=== PATIENT | male | born 1940 | race Caucasian/White ===

== ENCOUNTER 2017-02-05 21:28 | Emergency (ER) | payer MEDICARE, BC ==
[2017-02-05 21:58] VITALS: TEMP 98.2; O2SAT 98
--- NOTE | 2017-02-05 22:31 | RAD ---
Procedure: XR ANKLE 3 OR MORE VIEWS Exam Date: 02/05/2017 Ordering Provider: Ronald Simon Clinical Indication: struck inner ankle with axe-head Comparison: None FINDINGS: No acute fracture or dislocation. Medial soft tissue swelling. Small joint effusion. Vascular calcifications. Achilles enthesophyte. No subcutaneous gas evident. No radiopaque foreign body. IMPRESSION: 1. No acute fracture or dislocation of the right ankle. 2. Medial soft tissue swelling and small joint effusion. Electronically signed by: Adama Vail MD 02/05/2017 10:30 PM CDT
--- NOTE | 2017-02-05 22:34 | ED.PDOC ---
History of Present Illness - General Chief Complaint: Lower Extremity Injury Stated Complaint: rt ankle injury Time Seen by Provider: 02/05/17 22:32 Source: patient Exam Limitations: no limitations - History of Present Illness Initial Comments: Mr. Tejal Ybarra 76 y/o male with history of a.fib ,DM, and HTN stated while he was cutting tree limbs with his grubbing hoe it bounced back hitting his right ankle with swelling pain after incident on his right ankle. Occurred: this evening Pain - Lower Extremity: moderate: Right Ankle Method of Injury: direct blow Improving Factors: rest Worsening Factors: movement Allergies/Adverse Reactions: Allergies NO KNOWN ALLERGY Allergy (Verified 02/05/17 21:58) Home Medications: Ambulatory Orders Amoxicillin [Amoxil] 1,000 mg PO BID #30 cap 02/05/17 Centrum Silver 02/05/17 Ergocalciferol [Drisdol] 50,000 unit PO 02/05/17 Gabapentin [Neurontin] 300 mg PO 02/05/17 Levothyroxine Sodium [Synthroid] 150 mcg PO 02/05/17 Metformin HCl 500 mg PO 02/05/17 Pantoprazole Sodium [Protonix] 40 mg PO 02/05/17 Rivaroxaban [Xarelto] 20 mg PO 02/05/17 Simvastatin [Zocor] 20 mg 02/05/17 Tamsulosin HCl [Flomax] 0.4 mg PO 02/05/17 Tolterodine Tartrate [Tolterodine Tartrate ER] 4 mg PO 02/05/17 Review of Systems - Review of Systems Constitutional: States: no symptoms reported EENTM: States: no symptoms reported Respiratory: States: no symptoms reported Cardiology: States: no symptoms reported Gastrointestinal/Abdominal: States: no symptoms reported Genitourinary: States: no symptoms reported Musculoskeletal: States: see HPI Skin: States: no symptoms reported Neurological: States: other - neuropathy both feet from diabetes Endocrine: States: no symptoms reported Past Medical History (General) - Patient Medical History Hx Cardiac Disorders: Yes - a-fib Hx Thyroid Disease: Yes Hx Diabetes: Yes Hx Gastroesophageal Reflux: Yes Hx MRSA: No Surgical History: other - neck,esophagus,cardiac ablation - Vaccination History Hx Tetanus, Diphtheria Vaccination: No Hx Influenza Vaccination: Yes - Social History Hx Tobacco Use: No Hx Alcohol Use: No Hx Substance Use: No - Activities of Daily Living Patient Lives Alone: No - Grooming Ability: Independent Eating (Feeding) Ability: Independent Toileting Ability: Independent - Triage Comment ED Triage Comment: abrasion and swelling to inner rt ankle where struck self with axe head Family Medical History - Family History Father Family History: Unknown Hx Family Stroke: Yes - mom - Hx Family Cancer: Yes - prostate-dad Physical Exam - Physical Exam General Appearance: Alert, No apparent distress Eyes, Ears, Nose, Throat: PERRL/EOMI, normal ENT inspection, TMs normal, pharynx normal Neck: non-tender, full range of motion, supple Cardiovascular/Respiratory: no M/R/G, normal breath sounds, irregularly irregular Gastrointestinal/Abdominal: non-tender, no organomegaly Back: normal inspection, no CVA tenderness, no vertebral tenderness Thigh/Hip: normal inspection, no evidence of injury Leg: normal inspection, no evidence of injury Knee: normal inspection, no evidence of injury Ankle: soft tissue tenderness, swelling - medial malleolus right ankle Foot: normal inspection, non-tender, no evidence of injury Neuro/Tendon: normal motor functions, normal tendon functions, responds to pain Mental Status: alert, oriented x 3 Skin: normal color, warm/dry Progress - EKG/XRAY/CT XRAY: ankle - right no fracture noted Departure - Departure Clinical Impression: Swelling of joint, ankle, right Contusion of ankle, right Qualifiers: Encounter type: initial encounter Qualifier Code: (S90.01XA) Contusion of right ankle, initial encounter Time of Disposition: 22:55 Disposition: Discharge to Home or Self Care Condition: Good Departure Forms: ED Discharge - Pt. Copy, Patient Portal Self Enrollment Instructions: DI for Contusion Prescriptions: Amoxicillin [Amoxil] 1,000 mg PO BID #30 cap Home Medications: Ambulatory Orders Amoxicillin [Amoxil] 1,000 mg PO BID #30 cap 02/05/17 Centrum Silver 02/05/17 Ergocalciferol [Drisdol] 50,000 unit PO 02/05/17 Gabapentin [Neurontin] 300 mg PO 02/05/17 Levothyroxine Sodium [Synthroid] 150 mcg PO 02/05/17 Metformin HCl 500 mg PO 02/05/17 Pantoprazole Sodium [Protonix] 40 mg PO 02/05/17 Rivaroxaban [Xarelto] 20 mg PO 02/05/17 Simvastatin [Zocor] 20 mg 02/05/17 Tamsulosin HCl [Flomax] 0.4 mg PO 02/05/17 Tolterodine Tartrate [Tolterodine Tartrate ER] 4 mg PO 02/05/17 Additional Instructions: FOLLOW UP WITH PRIMARY MD IN ONE WEEK IF NEEDED;ELEVATE RIGHT LEG 20 degrees at bedtime until better Ice pack to affected area during waking hours only 3 x a day until better
[2017-02-05] MEDS ORDERED: TETANUS,DIPHTHERIA,PERTUSSIS 1 EA SYG IM ONE (22:52)
[2017-02-05 22:59] VITALS: BP 96/64
== END 2017-02-05 23:03 | disposition home or self-care (01) ==
LOC: ER 21:28
DX: S90.01XA Contusion of right ankle, initial encounter (principal); I48.91 Unspecified atrial fibrillation; E07.9 Disorder of thyroid, unspecified; E11.9 Type 2 diabetes mellitus without complications; K21.9 Gastro-esophageal reflux disease without esophagitis; Z23 Encounter for immunization; Z79.899 Other long term (current) drug therapy; W22.8XXA Striking against or struck by other objects, initial encounter; Y93.H2 Activity, gardening and landscaping

== ENCOUNTER 2017-04-29 10:47 | Inpatient (IN) | payer MEDICARE ==
[2017-04-29] MEDS ORDERED: PIPERACILLIN/TAZOBACTAM 3.375 GM in SODIUM CHLORIDE 0.9% 100ML 100 ML IVPB ONE (12:18)
[2017-04-29] MEDS ORDERED: IPRATROPIUM/ALBUTEROL 3 ML VIAL NEB ONE (12:20)
[2017-04-29] MEDS ORDERED: SODIUM CHLORIDE 0.9% 100ML 100 ML IVPB ONE (12:21)
[2017-04-29] MEDS ORDERED: PIPERACILLIN/TAZOBACTAM 3.375 GM VIAL IVPB ONE (12:21)
--- NOTE | 2017-04-29 12:21 | ED.PDOC ---
History of Present Illness - General Chief Complaint: GI Problem Stated Complaint: diarrhea,vomiting,cough Time Seen by Provider: 04/29/17 11:15 Source: patient Exam Limitations: no limitations - History of Present Illness Initial Comments: the patient is a 77-year-old male presenting to the emergency room with the suspicion that he has a pneumonia. He has had aspiration pneumonias in the past secondary to his esophageal difficulties as well as vocal cord dysfunction. He has had multiple recurrent infections from his esophageal surgery in the past. The patient is feeling short of breath, weak, febrile and he did throw up a couple of times this morning. He is febrile here. His oxygen saturations have been ranging from 88-92% on room air. He does not normally require oxygen is not an asthmatic. He has not passed out but he has felt dizzy. Symptoms startedlate last night. He does have a cough. Timing/Duration: 4-6 hours, getting worse Severity: moderate Improving Factors: nothing Worsening Factors: nothing Associated Symptoms: chest pain, loss of appetite, malaise, nausea/vomiting, shortness of breath, weakness Allergies/Adverse Reactions: Allergies NO KNOWN ALLERGY Allergy (Verified 02/05/17 21:58) Home Medications: Ambulatory Orders Amoxicillin [Amoxil] 1,000 mg PO BID #30 cap 02/05/17 Centrum Silver 02/05/17 Ergocalciferol [Drisdol] 50,000 unit PO 02/05/17 Gabapentin [Neurontin] 300 mg PO 02/05/17 Levothyroxine Sodium [Synthroid] 150 mcg PO 02/05/17 Metformin HCl 500 mg PO 02/05/17 Pantoprazole Tablet [Protonix] 40 mg PO 02/05/17 Rivaroxaban [Xarelto] 20 mg PO 02/05/17 Simvastatin [Zocor] 20 mg 02/05/17 Tamsulosin HCl [Flomax] 0.4 mg PO 02/05/17 Tolterodine Tartrate [Tolterodine Tartrate ER] 4 mg PO 02/05/17 Review of Systems - Review of Systems Constitutional: States: diaphoresis, fever, malaise, weakness EENTM: States: no symptoms reported Respiratory: States: cough, short of breath, wheezing Cardiology: States: no symptoms reported Gastrointestinal/Abdominal: States: nausea, vomiting Genitourinary: States: no symptoms reported Musculoskeletal: States: no symptoms reported Skin: States: no symptoms reported Neurological: States: no symptoms reported Endocrine: States: excessive sweating All other Systems: No Change from Baseline Past Medical History (General) - Patient Medical History Hx Cardiac Disorders: Yes - Atrial fib Hx Thyroid Disease: Yes Hx Diabetes: Yes Hx Gastroesophageal Reflux: Yes Hx MRSA: No - Vaccination History Hx Tetanus, Diphtheria Vaccination: No Hx Influenza Vaccination: Yes Hx Pneumococcal Vaccination: Yes - Social History Hx Tobacco Use: Yes Hx Alcohol Use: No Hx Substance Use: No Family Medical History - Family History Father Family History: Unknown Hx Family Stroke: Yes - mom - Hx Family Cancer: Yes - prostate-dad Physical Exam - Physical Exam General Appearance: Alert, Comfortable, No apparent distress Eye Exam: bilateral normal Ears, Nose, Throat: hearing grossly normal, normal ENT inspection, normal pharynx Neck: non-tender, supple, other - motion is limited due tosurgeries Respiratory: chest non-tender, no accessory muscle use, crackles - the right lung field, wheezing Cardiovascular/Chest: normal peripheral pulses, regular rate, rhythm, no edema Peripheral Pulses: radial,right: 2+, radial,left: 2+, dorsalis pedis,right: 2+, dorsalis pedis,left: 2+ Gastrointestinal/Abdominal: non tender, soft Rectal Exam: deferred Back Exam: normal inspection, no CVA tenderness, no vertebral tenderness Extremity: normal range of motion, non-tender, normal inspection, no pedal edema , normal capillary refill 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 Given the patient's history and rapid progression of symptoms, the patient is going to be placed in the hospital with IV antibiotics. There is a very high likelihood of the patient getting significantly worse before he improves. Blood culture and sputum cultures have been taken. The patient is going to be placed on Zosyn. Tylenol was given for fever. He is receiving a nebulizer treatment. He is receiving low-flow oxygen. - Results/Orders Results/Orders: 04/29/17 11:22 Telemetry .CONTINUOUS 04/29/17 11:54 AMYLASE Stat B-TYPE NATRIURETIC PEPTIDE/BNP Stat CARDIAC ENZYME GROUP Stat COMPLETE METABOLIC PROFILE Stat LIPASE Stat BLOOD CULTURE Stat 04/29/17 12:16 SPUTUM CULTURE Stat 04/29/17 12:18 Piperacillin/Tazobactam [Zosyn] 3.375 gm Sodium Chloride 0.9% 100Ml [NS (NACL 0.9%) 100ml] 100 ml IVPB ONCE 04/29/17 12:22 Acetaminophen [Tylenol] 650 mg PO ONCE ONE Laboratory Results - last 24 hr 04/29/17 04/29/17 04/29/17 11:54 11:54 11:54 WBC 11.8 H RBC 4.98 Hgb 14.4 Hct 42.9 MCV 86.2 MCH 28.9 MCHC 33.6 RDW 14.0 Plt Count 153 MPV 8.1 Absolute Neuts (auto) 10.20 H Absolute Lymphs (auto) 0.70 L Absolute Monos (auto) 0.70 Absolute Eos (auto) 0.10 Absolute Basos (auto) 0.10 Neutrophils % 86.6 H Lymphocytes % 6.3 L Monocytes % 6.1 Eosinophils % 0.5 L Basophils % 0.5 PT 17.9 H INR 1.590 PTT (SP) 32.9 D-Dimer, Quantitative 243 H* Sodium 139 Potassium 3.6 Chloride 104 Carbon Dioxide 26 Anion Gap 12.6 BUN 16 Creatinine 0.96 BUN/Creatinine Ratio 16.7 Random Glucose 132 H Serum Osmolality 280.6 Calcium 9.5 Total Bilirubin 1.6 H AST 21 ALT 21 Alkaline Phosphatase 65 Creatine Kinase 64 CK-MB (CK-2) 1.4 CK-MB (CK-2) % Not Reportable Troponin I < 0.02 Serum Total Protein 7.4 Albumin 4.0 Globulin 3.4 Albumin/Globulin Ratio 1.2 Amylase 37 Lipase 22 chest x-ray shows a significant right midlung infiltrate. Departure - Departure Clinical Impression: Pneumonia involving right lung Qualifiers: Pneumonia type: due to unspecified organism Lung location: middle lobe of lung Qualified Code(s): J18.9 - Pneumonia, unspecified organism Disposition: Admit Patient Referrals: Mohinder Anna MD [Primary Care Provider] - 1-2 Weeks Home Medications: Ambulatory Orders Amoxicillin [Amoxil] 1,000 mg PO BID #30 cap 02/05/17 Centrum Silver 02/05/17 Ergocalciferol [Drisdol] 50,000 unit PO 02/05/17 Gabapentin [Neurontin] 300 mg PO 02/05/17 Levothyroxine Sodium [Synthroid] 150 mcg PO 02/05/17 Metformin HCl 500 mg PO 02/05/17 Pantoprazole Tablet [Protonix] 40 mg PO 02/05/17 Rivaroxaban [Xarelto] 20 mg PO 02/05/17 Simvastatin [Zocor] 20 mg 02/05/17 Tamsulosin HCl [Flomax] 0.4 mg PO 02/05/17 Tolterodine Tartrate [Tolterodine Tartrate ER] 4 mg PO 02/05/17 Decision To Admit - Decistion To Admit Decision to Admit Reason: Medical Nature Decision to Admit Date: 04/29/17 Decision to Admit Time: 12:25
--- NOTE | 2017-04-29 12:21 | RAD ---
EXAM DESCRIPTION: Abdomen Flat Upright (accession [id number]), Chest,2 Views (accession [id number]) CLINICAL HISTORY: 77 years, Male, cough, fever, vomiting COMPARISON: None. FINDINGS: Chest x-ray: PA and lateral chest radiographs and supine and upright radiograph the abdomen and pelvis were performed. The lungs are well expanded with a moderate sized airspace opacity in the caudal RIGHT upper lobe extending to the RIGHT hilum and to the minor fissure. The costophrenic sulci are sharp. The aortic arch is calcified. Stable calcification versus suture material resides over the proximal esophagus. The cardiac silhouette, hilar regions, trachea, soft tissues and bony structures are unremarkable aside from focal pleural density seen on the lateral radiograph along the RIGHT posterior chest wall. This area measures 2.4 x 1.1 cm in diameter. Abdominal radiographs: Gas fills the proximal colon and multiple loops of small bowel. No air-fluid level is seen. No pneumoperitoneum detected. There is some gas and stool in the rectum. An ovoid calcification projects over the LEFT hemipelvis and likely lies outside the distal LEFT ureter. No suspicious calcification is seen. IMPRESSION: RIGHT upper lobe pneumonia. No evidence of bowel obstruction. Pleural or subpleural opacity along the posterior RIGHT lung measures 2.4 x 1.1 cm in diameter and is incompletely characterized. Consider postcontrast CT imaging through this region for further evaluation on a nonemergent basis. Electronically signed by: Ariela Bassett MD 04/29/2017 12:20 PM CDT Workstation: [employer]
--- NOTE | 2017-04-29 12:21 | RAD ---
EXAM DESCRIPTION: Abdomen Flat Upright (accession [id number]), Chest,2 Views (accession [id number]) CLINICAL HISTORY: 77 years, Male, cough, fever, vomiting COMPARISON: None. FINDINGS: Chest x-ray: PA and lateral chest radiographs and supine and upright radiograph the abdomen and pelvis were performed. The lungs are well expanded with a moderate sized airspace opacity in the caudal RIGHT upper lobe extending to the RIGHT hilum and to the minor fissure. The costophrenic sulci are sharp. The aortic arch is calcified. Stable calcification versus suture material resides over the proximal esophagus. The cardiac silhouette, hilar regions, trachea, soft tissues and bony structures are unremarkable aside from focal pleural density seen on the lateral radiograph along the RIGHT posterior chest wall. This area measures 2.4 x 1.1 cm in diameter. Abdominal radiographs: Gas fills the proximal colon and multiple loops of small bowel. No air-fluid level is seen. No pneumoperitoneum detected. There is some gas and stool in the rectum. An ovoid calcification projects over the LEFT hemipelvis and likely lies outside the distal LEFT ureter. No suspicious calcification is seen. IMPRESSION: RIGHT upper lobe pneumonia. No evidence of bowel obstruction. Pleural or subpleural opacity along the posterior RIGHT lung measures 2.4 x 1.1 cm in diameter and is incompletely characterized. Consider postcontrast CT imaging through this region for further evaluation on a nonemergent basis. Electronically signed by: Ariela Bassett MD 04/29/2017 12:20 PM CDT Workstation: [employer]
[2017-04-29] MEDS ORDERED: ACETAMINOPHEN 325 MG TAB PO ONE (12:22)
--- NOTE | 2017-04-29 13:06 | HP ---
SUPERVISING PHYSICIAN: Zhang Shipley M.D. CHIEF COMPLAINT: Diarrhea and vomiting. HISTORY OF PRESENT ILLNESS: This is a 77 year-old male patient who was in his usual state of health this morning and he woke up early this morning. He had 2 watery bowel movements as well as he had symptoms of acid reflux and vomiting. Initially he was not too worried about it because he drank a beer the previous night and he said sometimes beer gives him diarrhea, but then he said he just didn't feel right. During the morning he felt worse and worse. He came into the Emergency Room with continued complaints of nausea but no vomiting as well as reflux symptoms and general malaise. In the Emergency Room, his white count was elevated at 11.8 with a left shift with neutrophils of 86.6. Electrolytes were within normal limits but his glucose was 150. Bilirubin was high at 1.6 and BNP was 125. Chest x-ray per radiology interpretation shows a right upper lobe pneumonia and his abdominal x-ray shows pleural or subpleural opacity along the posterior right lung measuring 2.4 x 1.1 cm in diameter. It is incompletely characterized and to consider post contrast CT imaging through this region for further evaluation on a non-emergent basis. In the Emergency Room, his vital signs had an O2 sat of 88% on room air. He was given a breathing treatment. He had a temperature of 101.8 and blood pressure 115/80. I was called for admission to the hospital for right upper lobe pneumonia. PAST MEDICAL HISTORY: 1. 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 2. Diabetes mellitus type 2. 3. Peripheral neuropathy. 4. Atrial fibrillation presently on Xarelto. 5. Hypothyroidism. 6. Benign prostatic hypertrophy. 7. Hyperlipidemia. PAST SURGICAL HISTORY: 1. Esophageal surgery times 2 with subsequent paralysis of the vocal cords. 2. Cervical surgery times 2. 3. Feeding tube 3 years ago due to the vocal cord paralysis. 4. Open reduction and internal fixation of the left ankle. 5. Tonsillectomy. 6. Deviated septum repair. 7. Hammertoe surgery. OUTPATIENT MEDICATIONS: Per the EMR and awaiting verification. ALLERGIES: NO KNOWN DRUG ALLERGIES. SOCIAL HISTORY: He is . He has a distant tobacco use history. He drinks alcohol only occasionally and has no history of illicit drug use. REVIEW OF SYSTEMS: GENERAL: Positive for fever. Negative for fatigue or weight changes. HEENT: Positive for seasonal allergy symptoms and rhinitis. Negative for sore throat, vision changes or ear pain. RESPIRATORY: Negative for coughing or shortness of breath. CARDIAC: Negative for chest pain, palpitations or tachycardia. GASTROINTESTINAL: As per History of Present Illness. GENITOURINARY: Positive for polyuria and urinary retention. Negative for hematuria or dysuria. NEUROLOGIC: Negative for dizziness, headaches or seizures. SKIN: Negative for lesions or rashes. PHYSICAL EXAMINATION: VITAL SIGNS: Temperature 100, heart rate 72, blood pressure 96/61, respiratory rate 20, O2 sat 90%. GENERAL: This is a 77 year-old male patient who is sitting on the side of his bed. He is in no acute distress. HEENT: Normocephalic and atraumatic. Pupils are equal and reactive. Oropharynx is clear. Oral mucous membranes are moist. NECK: Supple without mass. CHEST: Somewhat diminished throughout with a few scattered rhonchi. There is equal rise and fall of the chest with inspiration and expiration. CARDIOVASCULAR: Regular rate and slightly irregular rhythm. ABDOMEN: Soft, nondistended, non-tender. Bowel sounds are positive. EXTREMITIES: No cyanosis, clubbing or edema. NEUROLOGIC: He is awake, alert and oriented times three. LABORATORY: Labs and films are as per the History of Present Illness. ASSESSMENT: 1. Right upper lobe pneumonia with concerns for aspiration pneumonia versus community-acquired pneumonia. Most likely it is aspiration due to the patient's history of vocal cord dysfunction, and he has a past history of aspiration pneumonia. 2. Leukocytosis. 3. Vocal cord dysfunction due to esophagus surgery. 4. Gastroesophageal reflux disease. 5. Atrial fibrillation. 6. Urinary retention. 7. Peripheral neuropathy. PLAN: We will admit the patient to the hospital. I have initiated pneumonia guidelines and put him on Levaquin as well as Clindamycin. I have also started some Align. He is also on sliding scale insulin. I have ordered Protonix IV b.i.d. He is on Xarelto. I will order SCDs for DVT prophylaxis. I am going to hold his Metformin tonight because I may do the contrast CT of the chest as recommended per radiology in the morning, but I will discuss that will Dr. Shipley. I have ordered breathing treatments as well as pulmonary hygiene with percussion. We will continue to follow him closely and treat as needed. Dr. Shipley is the supervising physician and available for consultation. #[id number] MTDD
[2017-04-29] MEDS ORDERED: SODIUM CHLORIDE 0.9% (FLUSH) 10 ML SYG IV PRN (15:32)
[2017-04-29] MEDS ORDERED: IPRATROPIUM/ALBUTEROL 3 ML VIAL NEB PRN (15:32)
[2017-04-29] MEDS ORDERED: ONDANSETRON INJ 4 MG/2 ML VIAL IV PRN (15:32)
[2017-04-29] MEDS ORDERED: DEXTROSE 50% 25 GM/50 ML SYG IV PRN (15:42)
[2017-04-29] MEDS ORDERED: GLUCAGON INJ 1 MG VIAL SUBCU PRN (15:42)
--- NOTE | 2017-04-29 15:47 | PCM.CORE ---
Physician DVT/VTE - Prophylaxis Currently: Patient already on anticoagulation therapy - Nurse DVT Assessment & Total Each Risk Factor Represents 3 Points: Age over 75 years, Medical PT with Hx of [place], CHF, Severe infection/sepsis Each Risk Factor is 1 Point: Obesity (BMI >25), Serious Lung disease (pnemonia < 1month, COPD, emphysema,etc) DVT Assessment Score: 8 - 5 or more Very High Risk Treatments: Early Ambulation *, Sequential Compression Device
[2017-04-29] MEDS ORDERED: CLINDAMYCIN IV 900MG 50 ML IVPB ONE ×2 (15:56→19:39)
[2017-04-29] MEDS: CLINDAMYCIN IV 900MG 900 MG in PREMIX BAG 1 BAG IVPB SCH ×2 (15:59→23:44)
[2017-04-29] MEDS ORDERED: PANTOPRAZOLE SODIUM IV 40 MG VIAL IV SCH (16:00)
[2017-04-29] MEDS ORDERED: IV SET AND CAP CHANGE INJ INJ SCH (16:00)
[2017-04-29] MEDS: INSULIN LISPRO 100 UNITS/ML PEN SUBCU SCH ×2 (16:39→21:15)
[2017-04-29] MEDS: IPRATROPIUM/ALBUTEROL 3 ML VIAL NEB SCH ×2 (16:39→20:50)
[2017-04-29] MEDS: levoFLOXacin 750MG IV 750 MG in PREMIX BAG 1 BAG IVPB SCH (17:29)
[2017-04-29] MEDS ORDERED: TAMSULOSIN 0.4 MG CAP ONE (19:38)
[2017-04-29] MEDS ORDERED: RIVAROXABAN 10 MG TAB ONE (19:38)
[2017-04-29] MEDS ORDERED: SIMVASTATIN 20 MG TAB ONE (19:39)
[2017-04-29] MEDS ORDERED: LEVOTHYROXINE SODIUM 0.075 MG TAB ONE (19:39)
[2017-04-29] MEDS ORDERED: GABAPENTIN 300 MG CAP ONE (19:40)
[2017-04-29] MEDS: BIFIDOBACTERIUM INFANTIS 4 MG CAP PO SCH (20:55)
[2017-04-29] MEDS: PANTOPRAZOLE SODIUM IV 40 MG VIAL IV SCH (20:56)
[2017-04-29] MEDS: TAMSULOSIN 0.4 MG CAP PO SCH (20:56)
[2017-04-29] MEDS: GABAPENTIN 300 MG CAP PO SCH (20:56)
[2017-04-29] MEDS: SIMVASTATIN 20 MG TAB PO SCH (20:57)
[2017-04-29] MEDS: SODIUM CHLORIDE 0.9% (FLUSH) 10 ML SYG IV SCH (20:57)
[2017-04-29] MEDS: RIVAROXABAN 10 MG TAB PO SCH (20:57)
[2017-04-30] MEDS: LEVOTHYROXINE SODIUM 0.075 MG TAB PO SCH (06:16)
[2017-04-30] MEDS: PANTOPRAZOLE SODIUM IV 40 MG VIAL IV SCH ×2 (06:17→16:51)
--- NOTE | 2017-04-30 06:22 | RAD ---
Procedure: XR CHEST 2 VIEWS Exam Date: 04/30/2017 Ordering Provider: CLYDE SCHAFER Clinical Indication: Pneumonia Comparison: 04/29/2017 Findings: Cardiomediastinal silhouette is stable. Focal lung consolidation: Stable right upper lobe opacities. No new lung opacities. Pleural effusion: No large pleural effusions. Pneumothorax: None Acute bony or soft tissue abnormality: None Impression: 1. Stable right upper lobe pneumonia. Electronically signed by: Adama Vail MD 04/30/2017 6:21 AM CDT
[2017-04-30] MEDS ORDERED: TOLTERODINE TARTRATE ER 4 MG CAP PO ONE (07:30)
[2017-04-30] MEDS ORDERED: CLINDAMYCIN IV 900MG 50 ML IVPB ONE ×3 (07:31→19:50)
[2017-04-30] MEDS: CLINDAMYCIN IV 900MG 900 MG in PREMIX BAG 1 BAG IVPB SCH ×3 (07:51→23:57)
[2017-04-30] MEDS: INSULIN LISPRO 100 UNITS/ML PEN SUBCU SCH ×4 (07:51→21:00)
[2017-04-30] MEDS: IPRATROPIUM/ALBUTEROL 3 ML VIAL NEB SCH ×4 (08:23→20:29)
[2017-04-30] MEDS: SODIUM CHLORIDE 0.9% (FLUSH) 10 ML SYG IV SCH ×2 (09:02→21:08)
[2017-04-30] MEDS: GABAPENTIN 300 MG CAP PO SCH ×2 (09:02→21:08)
[2017-04-30] MEDS: BIFIDOBACTERIUM INFANTIS 4 MG CAP PO SCH ×2 (09:02→21:08)
[2017-04-30] MEDS: TAMSULOSIN 0.4 MG CAP PO SCH ×2 (09:02→21:08)
[2017-04-30] MEDS: TOLTERODINE TARTRATE ER 4 MG CAP PO SCH (09:02)
--- NOTE | 2017-04-30 09:20 | PN ---
SUPERVISING PHYSICIAN: Zhang Shipley MD DATE: 04-30-17 SUBJECTIVE: The patient is sitting up in his room. He is just eating his breakfast. He has no complaints of chest pain, shortness of breath, abdominal pain, nausea or vomiting. Instructions have been given to him that he is to be n.p.o. for the next couple of hours as he is to have a CT of the chest and the abdomen due to elevated bilirubin as well as his nausea and vomiting from yesterday. OBJECTIVE: VITAL SIGNS: He is afebrile. Heart rate is 62, blood pressure 100/63, respiratory rate 18, 02 saturation 93% on one liter nasal cannula. RESPIRATORY: Somewhat diminished throughout but otherwise clear to auscultation bilaterally. CARDIAC: Slightly irregular rhythm, regular rate. ABDOMEN: Soft. He is obese but it is soft. There is no tenderness noted. Bowel sounds are positive. EXTREMITIES: No cyanosis, clubbing, or edema. NEUROLOGIC: He is awake, alert, and oriented x3. LABORATORY: WBCs have gone up to 13,600 but his neutrophils have stabilized at 76.6. His hemoglobin is 12.6, hematocrit 38.0. Electrolytes are within normal limits. Glucose 116, total bilirubin 2.3. Preliminary blood cultures are negative to date. He has been unable to get a sputum culture. Chest x-ray per radiology interpretation shows a stable appearing right upper lobe pneumonia. All other labs and films have been reviewed via the EMR. ASSESSMENT: 1. Right upper lobe pneumonia with concerns for aspiration pneumonia versus community-acquired pneumonia. Most likely it is aspiration due to the patient's history of vocal cord dysfunction, and he has a past history of aspiration pneumonia. 2. Elevated bilirubin with nausea and vomiting on day of admission. 3. Leukocytosis that has slightly worsened. 4. Vocal cord dysfunction due to esophagus surgery. 5. Gastroesophageal reflux disease. 6. Atrial fibrillation. 7. Urinary retention. 8. Peripheral neuropathy. PLAN: We will continue present supportive care. I have ordered labs for tomorrow. I have also done a breakdown of his bilirubin to get a direct and indirect. I have ordered a contrast CT of the chest and abdomen due to the elevated bilirubin as well as the suggestion from yesterday's chest x-ray. He will continue on his present medications. I have also held his Metformin and we can start that up in [address] again after the CT scan. We will continue to encourage good pulmonary hygiene and we will continue to monitor patient closely , followup as needed. #[id number] MTDD
--- NOTE | 2017-04-30 11:56 | CT ---
PROCEDURE: Chest w/Contrast HISTORY: Evaluation for pneumonia Indication: Same as above Comparison: None Technique: CT of the chest was done with intravenous contrast, followed by orthogonal reconstructions. The patient was injected with contrast intravenously, without any documented immediate adverse reactions. This exam was performed according to our departmental dose-optimization program, which includes automated exposure control, adjustment of the mA and/or KV according to the patient's size and/or use of iterative reconstruction technique. FINDINGS: There is presence of small pericardial effusion and mild cardiomegaly. There is presence of moderate size infiltrates in the right upper lobe of the lung. There is presence of a long segment linear wall calcification along the posterior aspect of the upper thoracic esophagus, etiology of which is uncertain There is no pleural effusion or pneumothorax There is no gross evidence of pulmonary embolism. There is no clinically significant thoracic aortic aneurysm or dissection. There are no pathologically enlarged lymph nodes in the mediastinum, bilateral hilar region, bilateral axillary or supraclavicular region. The visualized thoracic bony rib cage appears unremarkable. The thoracic spine shows mild degenerative change The visualized upper abdominal viscera appears unremarkable. IMPRESSION: There is presence of small pericardial effusion and mild cardiomegaly. There is presence of moderate size infiltrates in the right upper lobe of the lung. There is presence of a long segment linear wall calcification along the posterior aspect of the upper thoracic esophagus, etiology of which is uncertain Electronically signed by: Santino Coffman MD 04/30/2017 11:55 AM CDT Workstation: [employer]
--- NOTE | 2017-04-30 11:59 | CT ---
PROCEDURE: Abdomen w/Contrast Clinical History: pna;elev bili Indication: Same as above Comparison: CT of the chest done on the same day Technique: CT of the abdomen was done with intravenous contrast followed by orthogonal reconstructions. Oral contrast was not given for the study. The patient was injected with contrast intravenously, without any documented immediate adverse reactions. This exam was performed according to our departmental dose-optimization program, which includes automated exposure control, adjustment of the mA and/or KV according to the patient's size and/or use of iterative reconstruction technique. Findings: Images through the lung bases do not show any focal infiltrates or pleural effusions. Note is made of mild pericardial effusion and a small hiatal hernia The liver, gallbladder, pancreas, spleen and the bilateral adrenal glands appear unremarkable. The bilateral kidneys enhance in a normal fashion, without any evidence of hydronephrosis. The visualized portions of the bilateral ureters are unremarkable. The visualized small bowel and large appear unremarkable, without any evidence of small bowel obstruction or bowel wall thickening or CT evidence of acute diverticulitis in the visualized segments of the large bowel. There is no pathological lymphadenopathy in the visualized retroperitoneum or the abdomen . There is no evidence of free fluid or free air in the visualized portions of the abdomen . There is no clinically significant abdominal aortic aneurysm in the visualized portion of the abdominal aorta. There is no clinically significant ventral hernia. There are no significant acute abnormalities of the bony structures of the abdomen region. The visualized paravertebral soft tissues are unremarkable. Impression: Note is made of mild pericardial effusion and a small hiatal hernia The liver, pancreas, common duct and the gallbladder are unremarkable. Electronically signed by: Santino Coffman MD 04/30/2017 11:58 AM CDT Workstation: [id number]
[2017-04-30] MEDS: levoFLOXacin 750MG IV 750 MG in PREMIX BAG 1 BAG IVPB SCH (18:07)
[2017-04-30] MEDS: SIMVASTATIN 20 MG TAB PO SCH (21:07)
[2017-04-30] MEDS: RIVAROXABAN 10 MG TAB PO SCH (21:08)
[2017-05-01] MEDS: LEVOTHYROXINE SODIUM 0.075 MG TAB PO SCH (05:40)
[2017-05-01] MEDS ORDERED: CLINDAMYCIN IV 900MG 50 ML IVPB ONE (07:51)
[2017-05-01] MEDS: INSULIN LISPRO 100 UNITS/ML PEN SUBCU SCH ×2 (08:27→11:41)
[2017-05-01] MEDS: PANTOPRAZOLE SODIUM IV 40 MG VIAL IV SCH (08:28)
[2017-05-01] MEDS: CLINDAMYCIN IV 900MG 900 MG in PREMIX BAG 1 BAG IVPB SCH (08:29)
[2017-05-01] MEDS: TAMSULOSIN 0.4 MG CAP PO SCH (08:29)
[2017-05-01] MEDS: GABAPENTIN 300 MG CAP PO SCH (08:29)
[2017-05-01] MEDS: TOLTERODINE TARTRATE ER 4 MG CAP PO SCH (08:29)
[2017-05-01] MEDS: BIFIDOBACTERIUM INFANTIS 4 MG CAP PO SCH (08:29)
[2017-05-01] MEDS: SODIUM CHLORIDE 0.9% (FLUSH) 10 ML SYG IV SCH (08:30)
[2017-05-01] MEDS: IPRATROPIUM/ALBUTEROL 3 ML VIAL NEB SCH ×2 (08:50→12:22)
[2017-05-01 10:57] VITALS: BP 113/73; TEMP 98.6; O2SAT 96
--- NOTE | 2017-05-01 14:42 | DS ---
SUPERVISING PHYSICIAN: Zhang Shipley M.D. CHIEF COMPLAINT: Diarrhea and vomiting. DISCHARGE DIAGNOSIS: 1. Right upper lobe pneumonia with concerns for aspiration pneumonia versus community-acquired pneumonia, most likely aspiration due to the patient's history of vocal cord dysfunction and he has a past history of aspiration pneumonia. 2. Elevated bilirubin with nausea and vomiting on day of admission. 3. Leukocytosis, improved. 4. Vocal cord dysfunction due to esophagus surgery. 5. Urinary retention. 6. Gastroesophageal reflux disease. 7. Atrial fibrillation. 8. Peripheral neuropathy. HISTORY OF PRESENT ILLNESS: This is a 77-year-old male patient who was in his usual state of health on the morning of admission when he woke up and had 2 very watery bowel movements. He also had symptoms of acid reflux and vomiting. Initially, he was not too worried because he drank a beer the previous night and he said sometimes beer gives him diarrhea, but during the day, it progressively worsened and he felt that he just did not feel right, so he came to the Emergency Room with acid reflux symptoms, general malaise, and vomiting. In the Emergency Room, his white count was elevated at 11.8 with a left shift with neutrophils of 86.6. Electrolytes were within normal limits, but his glucose was 150. Bilirubin was high at 1.6 and BNP was 125. Chest x-ray per radiologic interpretation shows a right upper lobe pneumonia and his abdominal x -ray showed pleural or subpleural opacity along the posterior right lung measuring 2.4 x 1.1 cm in diameter. His O2 sat of in the Emergency Room dropped to 88%. He was given breathing treatments. He had a temperature of 101.8 and blood pressure 115/80. He was admitted to the Floor. HOSPITAL COURSE: He was placed on Levaquin as well as clindamycin for concerns of aspiration pneumonia. He received breathing treatments. On day 2 of his hospital stay, his bilirubin went up to 2.3 and his direct bilirubin was 0.3 and indirect bilirubin was 1.8. CT of the abdomen was done as well as a chest CT and per radiologic interpretation showed the presence of a small pericardial effusion, mild cardiomegaly. There is presence of moderate sized infiltrate in the right upper lobe of the lung. There is presence of a long segment linear wall calcification along the posterior aspects of the upper thoracic esophagus, etiology of which is uncertain. His abdominal CT showed the liver, pancreas, common duct and gallbladder all unremarkable. 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 His vital signs have stabilized. He has had no problems with shortness of breath. He ambulated in the bolden without difficulty and with his oxygen saturations no lower than 92%. He will be discharged home today. DISCHARGE PLAN: The patient will be discharged home in stable condition. He is to resume his previous diet as well as his previous medications. I have added Levaquin and clindamycin for his pneumonia as well as Align probiotics twice a day. In the Emergency Room, he had some problems with some urinary retention. He was placed on Proscar and Flomax. I have given him a prescription for Flomax and he get that filled if he wants to. He sees his urologist next week. He also can see Dr. Anna within the next one to two weeks. I spoke with Dr. Anna this morning and we discussed that it could be imperative that he see a party plan demonstrator due to his vocal cord dysfunction and most likely having some chronic aspiration pneumonia. He is also going to get a followup appointment with his internal medicine doctor within the next two weeks. He is to return to Dr. Anna's office or to the hospital if he has any further complications or problems. Dr. Shipley is the collaborating physician and available for consultation. DISCHARGE MEDICATIONS: 1. Simvastatin. 2. Xarelto. 3. Metoprolol. 4. Metformin. 5. Levothyroxine. 6. Gabapentin. 7. Drisdol. 8. Centrum Silver. 9. Folbic. 10. Align. 11. Clindamycin. 12. Detrol LA. 13. Flomax. #[id number] [facility]
[2017-05-01] MEDS ORDERED: PANTOPRAZOLE SODIUM TAB 40 MG PO SCH (16:30)
== END 2017-05-01 13:23 | disposition home or self-care (01) | DRG 179 ==
LOC: ER 10:47 → MS 13:05
PROVIDERS: ADMIT Nurse Practitioner Acute Care; ATTEND Nurse Practitioner Acute Care
PROC: BW20YZZ Computerized Tomography (CT Scan) of Abdomen using Other Contrast (ICD-10-PCS; principal; 2017-04-30)
PROC: BB24YZZ Computerized Tomography (CT Scan) of Bilateral Lungs using Other Contrast (ICD-10-PCS; 2017-04-30)
DX: J69.0 Pneumonitis due to inhalation of food and vomit (principal); E80.6 Other disorders of bilirubin metabolism; E11.42 Type 2 diabetes mellitus with diabetic polyneuropathy; I48.91 Unspecified atrial fibrillation; E03.9 Hypothyroidism, unspecified; E78.5 Hyperlipidemia, unspecified; J38.00 Paralysis of vocal cords and larynx, unspecified; J30.2 Other seasonal allergic rhinitis; K21.9 Gastro-esophageal reflux disease without esophagitis; N40.1 Benign prostatic hyperplasia with lower urinary tract symptoms; R11.11 Vomiting without nausea; R33.9 Retention of urine, unspecified; R19.7 Diarrhea, unspecified; Y83.8 Other surgical procedures as the cause of abnormal reaction of the patient, or of later complication, without mention of misadventure at the time of the procedure; Z87.891 Personal history of nicotine dependence; Z79.01 Long term (current) use of anticoagulants; Z79.84 Long term (current) use of oral hypoglycemic drugs; Z79.899 Other long term (current) drug therapy

== ENCOUNTER → 2017-07-24 | Outpatient (CLI) | payer MEDICARE ==
--- NOTE | 2017-07-24 16:40 | CT ---
EXAM DESCRIPTION: Chest w/o Contrast CLINICAL HISTORY: 77 years, Male, ASPIRATION PNEUMONIA COMPARISON: April 30, 2017 TECHNIQUE: Thin-section noncontrast axial CT images are obtained according to our protocol. Reconstructed MPR images are created and reviewed as well. This exam was performed according to our departmental dose-optimization program, which includes automated exposure control, adjustment of the mA and/or kV according to patient size and/or use of iterative reconstruction technique. FINDINGS: Noncontrast imaging of the chest demonstrates modest cardiomegaly and a modest pericardial effusion similar to that previously seen in April. Moderately extensive coronary calcification is noted. A small retrocardiac hiatal hernia is apparent. The thoracic inlet and superior mediastinum as well as the middle mediastinum and hilar structures demonstrate no significant adenopathy or mass. Previously noted dense opacification in the anterior aspect of the right upper lobe has essentially cleared from prior study with mild dependent atelectasis and mild scarring or platelike atelectasis in the mid left lung base. Dense alveolar consolidation or pleural effusions or other inflammatory changes to suggest an acute process is not apparent. Below the diaphragms no gross abnormality in the upper abdomen is seen. IMPRESSION: 1. Interval resolution of dense consolidation in the anterior aspect of the right upper lobe. 2. Mild dependent atelectasis in both posterior lung avila and minimal linear scarring or platelike atelectasis in the mid left lung base. 3. Dense new consolidation or mass is not apparent. Electronically signed by: Zhang Simmons MD 07/24/2017 4:38 PM CDT
== END | disposition home or self-care (01) ==
LOC: CT 09:32
PROVIDERS: ATTEND Physician Assistant
DX: J69.8 Pneumonitis due to inhalation of other solids and liquids (principal)

== ENCOUNTER 2017-08-06 18:25 | Emergency (ER) | payer MEDICARE ==
[2017-08-06 18:43] VITALS: TEMP 99.9
--- NOTE | 2017-08-06 19:49 | RAD ---
EXAM DESCRIPTION: Chest,2 Views CLINICAL HISTORY: 77 years Male, LEFT SIDED CHEST PAIN COMPARISON: April 30, 2017 TECHNIQUE: PA and lateral chest FINDINGS: Cardiac silhouette and mediastinum are unchanged. Previous right perihilar infiltrate has resolved. No infiltrates on current exam. Dense material within the upper esophagus is again noted. IMPRESSION: Right perihilar infiltrate resolved. Lungs are clear. Electronically signed by: Johnnie Wayne 08/06/2017 7:47 PM CDT
--- NOTE | 2017-08-06 19:59 | RAD ---
EXAM DESCRIPTION: Ribs,Left 3 Views CLINICAL HISTORY: 77 years Male, LEFT RIB PAIN COMPARISON: None. TECHNIQUE: 3 views left RIBS FINDINGS: Costochondral calcifications. No fractures are evident. No pleural fluid collections or pneumothoraces are seen. IMPRESSION: No fractures Electronically signed by: Johnnie Wyane 08/06/2017 7:57 PM CDT
--- NOTE | 2017-08-06 20:10 | CT ---
EXAM DATE: 08/06/2017 7:39 PM CDT. PROCEDURE: CT HEAD WITHOUT IV CONTRAST. INDICATION: fall, takes blood thinners. COMPARISON: None. TECHNIQUE: Axial CT images of the head were acquired without intravenous contrast. This exam was performed according to our departmental dose-optimization program which includes use of Automated Exposure Control, adjustment of the mA and/or kV according to patient size and/or use of iterative reconstruction technique. FINDINGS: No acute intracranial hemorrhage. Richard white matter differentiation is preserved. No mass effect or midline shift. Mild generalized brain volume loss. Sequelae of bilateral cataract surgery. The paranasal sinuses are well aerated. Mastoid air cells are clear. Intact calvarium. IMPRESSION: No acute intracranial abnormality. Mild generalized brain volume loss. Electronically signed by: Medardo Rodríguez MD 08/06/2017 8:09 PM CDT
--- NOTE | 2017-08-06 20:11 | ED.PDOC ---
History of Present Illness - General Chief Complaint: Trauma Stated Complaint: s/p fall Time Seen by Provider: 08/06/17 19:11 Source: patient Exam Limitations: no limitations - History of Present Illness Initial Comments: Felipe Ybarra 77 y/o male stated [place] walking on a wooden plank 3 days ago lost his balance and fell landing on left side of his chest and head hitting the ground .Had headache after the incident but gradually went away.Also had 3 episodes of nausea /vomiting after eating hot dog at [employer].Today was noted to have temp.-101degrees given tylenol.Has pain left side of his ribs when taking deep breaths, no cough Occurred: other - 3 days ago Injuries/Pain Location: head, chest - left rib cage Reason for Fall: lost balance Loss of Consciousness: no loss of consciousness Improving Factors: nothing Worsening Factors: nothing Associated Symptoms (Fall): other - see hpi Allergies/Adverse Reactions: Allergies NO KNOWN ALLERGY Allergy (Verified 02/05/17 21:58) Home Medications: Ambulatory Orders Centrum Silver 1 tablet PO DAILY 02/05/17 Ergocalciferol [Drisdol] 50,000 unit PO MONTHLY 02/05/17 Gabapentin [Neurontin] 900 mg PO BID 02/05/17 Levothyroxine Sodium [Synthroid] 150 mcg PO DAILY 02/05/17 Metformin HCl 1,000 mg PO BID 02/05/17 Pantoprazole Tablet [Protonix] 40 mg PO DAILY 02/05/17 Rivaroxaban [Xarelto] 20 mg PO BEDTIME 02/05/17 Simvastatin [Zocor] 20 mg PO DAILY 02/05/17 Tamsulosin HCl [Flomax] 0.4 mg PO BID 02/05/17 Tolterodine Tartrate [Tolterodine Tartrate ER] 4 mg PO DAILY 02/05/17 Folic Kuxx-Fvucczynwl-Rwpzsaec [Folbic 2.5-25-2 mg] 1 tab PO DAILY 04/29/17 Bifidobacterium Infantis [Align] 4 mg PO BID #60 05/01/17 Clindamycin HCl 600 mg PO TID #25 cap 05/01/17 Tamsulosin [Flomax] 0.4 mg PO BID #60 05/01/17 levoFLOXacin [Levaquin] 500 mg PO DAILY #5 tab 05/01/17 Review of Systems - Review of Systems Constitutional: States: see HPI, fever EENTM: States: no symptoms reported Respiratory: States: see HPI Cardiology: States: no symptoms reported Gastrointestinal/Abdominal: States: no symptoms reported Genitourinary: States: no symptoms reported Musculoskeletal: States: no symptoms reported Neurological: States: see HPI Endocrine: States: no symptoms reported Past Medical History (General) - Patient Medical History Hx Stroke: No Hx of COPD: No Hx Cardiac Disorders: Yes - Atrial fib Hx Congestive Heart Failure: No Hx Hypertension: Yes Hx Thyroid Disease: Yes Hx Diabetes: Yes Hx Gastroesophageal Reflux: Yes Hx MRSA: No Surgical History: other - c-spine,cardiac ablation,ankle - Vaccination History Hx Tetanus, Diphtheria Vaccination: No Hx Influenza Vaccination: Yes Hx Pneumococcal Vaccination: Yes - Social History Hx Tobacco Use: Yes Hx Alcohol Use: No Hx Substance Use: No Hx Physical Abuse: No Hx Emotional Abuse: No - Activities of Daily Living Patient Lives Alone: No Grooming Ability: Independent Eating (Feeding) Ability: Independent Toileting Ability: Independent Physical Exam - Physical Exam General Appearance: Alert, No apparent distress Head Injury: no evidence of injury Eye Exam: bilateral normal ENT Exam: hearing grossly normal, no evidence of ENT injury, no dental injury Cardiovascular/Respiratory: no M/R/G, normal peripheral pulses, normal breath sounds, irregularly irregular, other - tenderness left lower rib cage Gastrointestinal/Abdominal: non tender, soft, no organomegaly Back Exam: no vertebral tenderness Extremity Exam: normal range of motion, no pedal edema Neurologic: alert, oriented x 3 Skin Exam: normal color, warm/dry - Harris Coma Score Best Eye Response (Harris): (4) open spontaneously Best Verbal Response (Ethan): (5) oriented Best Motor Response (Ethan): (6) obeys commands Ethan Total: 15 Departure - Departure Clinical Impression: 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 on 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 side, 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, Abnormal bilirubin test Fall Qualifiers: Encounter type: initial encounter Qualified Code(s): W19.XXXA - Unspecified fall, initial encounter Contusion of left chest wall Qualifiers: Encounter type: initial encounter Qualified Code(s): S20.212A - Contusion of left front wall of thorax, initial encounter Contusion of head Qualifiers: Encounter type: initial encounter Contusion of head detail: other part of head Qualified Code(s): S00.83XA - Contusion of other part of head, initial encounter Time of Disposition: 21:02 Disposition: Discharge to Home or Self Care Departure Forms: ED Discharge - Pt. Copy, Patient Portal Self Enrollment Instructions: DI for Rib Contusion Referrals: Mohinder Anna MD [Primary Care Provider] - 1-2 Weeks Home Medications: Ambulatory Orders Centrum Silver 1 tablet PO DAILY 02/05/17 Ergocalciferol [Drisdol] 50,000 unit PO MONTHLY 02/05/17 Gabapentin [Neurontin] 900 mg PO BID 02/05/17 Levothyroxine Sodium [Synthroid] 150 mcg PO DAILY 02/05/17 Metformin HCl 1,000 mg PO BID 02/05/17 Pantoprazole Tablet [Protonix] 40 mg PO DAILY 02/05/17 Rivaroxaban [Xarelto] 20 mg PO BEDTIME 02/05/17 Simvastatin [Zocor] 20 mg PO DAILY 02/05/17 Tamsulosin HCl [Flomax] 0.4 mg PO BID 02/05/17 Tolterodine Tartrate [Tolterodine Tartrate ER] 4 mg PO DAILY 02/05/17 Folic Qfig-Yzuqroxbmt-Jxexnqrs [Folbic 2.5-25-2 mg] 1 tab PO DAILY 04/29/17 Bifidobacterium Infantis [Align] 4 mg PO BID #60 05/01/17 Clindamycin HCl 600 mg PO TID #25 cap 05/01/17 Tamsulosin [Flomax] 0.4 mg PO BID #60 05/01/17 levoFLOXacin [Levaquin] 500 mg PO DAILY #5 tab 05/01/17 Additional Instructions: Keep md appointment next month ;Return to emergency room as needed
[2017-08-06] MEDS ORDERED: HYDROCOD/APAP 7.5/325 (ER DISP) #3 TAB PO ONE (21:03)
[2017-08-06 21:04] VITALS: BP 114/78; O2SAT 95
== END 2017-08-06 21:08 | disposition home or self-care (01) ==
LOC: ER 18:25
DX: S00.83XA Contusion of other part of head, initial encounter (principal); S20.212A Contusion of left front wall of thorax, initial encounter; I48.91 Unspecified atrial fibrillation; I10 Essential (primary) hypertension; E07.9 Disorder of thyroid, unspecified; E11.9 Type 2 diabetes mellitus without complications; K21.9 Gastro-esophageal reflux disease without esophagitis; Z79.899 Other long term (current) drug therapy; W19.XXXA Unspecified fall, initial encounter; Y92.79 Other farm location as the place of occurrence of the external cause

== ENCOUNTER → 2018-02-08 | Outpatient (CLI) | payer MEDICARE | LOC: LAB.O 15:34 | PROVIDERS: ATTEND Family Medicine | DX: R19.7 Diarrhea, unspecified (principal) ==

== ENCOUNTER → 2018-04-03 | Outpatient (CLI) | payer MEDICARE ==
--- NOTE | 2018-04-03 14:50 | CT ---
EXAM DESCRIPTION: Chest w/Contrast : Computed Tomography. CLINICAL HISTORY: PNEUMONIA COMPARISON: PA and lateral chest radiographs 03/28/2018 and 07/17/2017. TECHNIQUE: Spiral-axial scans at 5.0 mm intervals through the lungs and thorax without IV contrast. 2.5 mm lung algorithm axial reconstructions. Coronal and sagittal 2.0 Mm reconstructions. No adverse reactions. Total Exam DLP: 808.47 mGy-cm. This exam was performed according to our departmental dose-optimization program which includes automated exposure control, adjustment of the mA and/or kV according to patient size and/or use of iterative reconstruction technique; to reduce radiation dose to as low as reasonably achievable (ALARA). FINDINGS: Dense tissue containing air bronchograms is visible in the right suprahilar region along with thin inferior border of this tissue the horizontal fissure, medial border medial pleura and mediastinum. Most of the involvement is in the anterior segment of the right upper lobe, but the anterior segment bronchus and subsegmental branches appear patent. No definitive masses or abnormal enhancement within this infiltrate. No unusual calcifications. No major endobronchial lesions are visualized. Minimal thickening of the medial horizontal fissure. No infiltrates or masses elsewhere. Bilateral small focal areas of pleural thickening. No pleural effusion or pneumothorax. Single azygos lymph node with central fatty density measures 10 mm short axis. No other enlarged lymph nodes are soft tissue masses or abnormal enhancement in the axilla, base of the neck, mediastinum or bilateral hilum. Thyroid gland is not well seen. Possible small, subcentimeter calcification on the left lobe. This sub-diaphragmatic peritoneal space is unremarkable. Partial visualization of adrenal glands and spleen with included region is negative. Assess atherosclerotic calcification of the thoracic and included abdominal aorta with minimal calcification. Multiple osteophytes on the included thoracic spine. Arthrosis at some of the costochondral junctions with calcification. Bilateral glenohumeral joint arthrosis. IMPRESSION: 1. Probable pneumonia, possibly atypical bacterial or fungal etiology, in the inferior, medial, and perihilar subsegments of the anterior segment of the right upper lobe. Abutting the horizontal fissure and hilum. Contains air bronchograms, but segmental and subsegmental bronchi appear patent. No definite mass. 2. Single azygos lymph node borderline enlarged. This can be related to infection. No other mediastinal or Hilar adenopathy. Consider sputum cultures for atypical bacterial and fungal or viral disease. Pulmonary medicine consultation. Serial follow-up chest radiographs. Electronically signed by: Miguel Soto MD 04/03/2018 2:49 PM CDT
== END ==
LOC: CT 09:30
PROVIDERS: ATTEND Family Medicine
DX: J18.9 Pneumonia, unspecified organism (principal)

== ENCOUNTER → 2018-10-15 | Outpatient (CLI) | payer MEDICARE | LOC: GMAE 14:45 | PROVIDERS: ATTEND Family Medicine | DX: R06.02 Shortness of breath (principal) ==

== ENCOUNTER 2019-08-22 13:40 | Emergency (ER) | payer MEDICARE ==
[2019-08-22 13:55] VITALS: TEMP 97.4; O2SAT 97
--- NOTE | 2019-08-22 14:02 | ED.PDOC ---
History of Present Illness - General Chief Complaint: ENT Problem Stated Complaint: nose bleed Time Seen by Provider: 08/22/19 13:58 Source: patient - History of Present Illness Initial Comments: 79 yo male with PMH of HTN, A-fib on Xarelto who presents with cc of nosebleed. Reports has been having intermittent brief nosebleeds all week due to increased nasal drainage and congestion. This morning had a nosebleed at 9:30 which stopped with pressure. At 12:30 pm the nosebleed recurred from the right nares only but has not resolved despite 10-15 minutes continuous pressure at home. Reports soaking through several tissue papers. Denies any dizziness, lightheadedness, chest pain, dyspnea, or other sx's. Was at the ENT on Monday for a check-up (hx of Zencker's diverticulum s/p repair) and the ENT chemically cauterized a spot in the right nares per patient although he was not bleeding at that time. Allergies/Adverse Reactions: Allergies NO KNOWN ALLERGY Allergy (Verified 02/05/17 21:58) Home Medications: Ambulatory Orders Centrum Silver 1 tablet PO DAILY 02/05/17 Ergocalciferol [Drisdol] 50,000 unit PO MONTHLY 02/05/17 Gabapentin [Neurontin] 900 mg PO BID 02/05/17 Levothyroxine Sodium [Synthroid] 150 mcg PO DAILY 02/05/17 Metformin HCl [Metformin Hydrochloride] 1,000 mg PO BID 02/05/17 Pantoprazole Tablet [Protonix] 40 mg PO DAILY 02/05/17 Rivaroxaban [Xarelto] 20 mg PO BEDTIME 02/05/17 Simvastatin [Zocor] 20 mg PO DAILY 02/05/17 Tamsulosin HCl [Flomax] 0.4 mg PO BID 02/05/17 Tolterodine Tartrate [Tolterodine Tartrate ER] 4 mg PO DAILY 02/05/17 Folic Ymga-Lubqetmudb-Biagtmes [Folbic 2.5-25-2 mg] 1 tab PO DAILY 04/29/17 Bifidobacterium Infantis [Align] 4 mg PO BID #60 05/01/17 Clindamycin HCl 600 mg PO TID #25 cap 05/01/17 Tamsulosin [Flomax] 0.4 mg PO BID #60 05/01/17 levoFLOXacin [Levaquin] 500 mg PO DAILY #5 tab 05/01/17 Review of Systems - Review of Systems Review of Systems: 08/22/19 14:01 as per HPI All other Systems: Reviewed and Negative Past Medical History (General) - Patient Medical History Hx Stroke: No Hx of COPD: No Hx Cardiac Disorders: Yes - Atrial fib Hx Congestive Heart Failure: No Hx Hypertension: Yes Hx Thyroid Disease: Yes Hx Diabetes: Yes Hx Gastroesophageal Reflux: Yes Hx MRSA: No - Vaccination History Hx Tetanus, Diphtheria Vaccination: Yes Hx Influenza Vaccination: Yes Hx Pneumococcal Vaccination: Yes Immunizations Up to Date: Yes - Social History Hx Tobacco Use: Yes Hx Alcohol Use: No Hx Substance Use: No Hx Physical Abuse: No Hx Emotional Abuse: No Family Medical History - Family History Father Family History: Unknown Hx Family Stroke: Yes - mom - Hx Family Cancer: Yes - prostate-dad Physical Exam - Physical Exam General Appearance: Alert, No apparent distress Eye Exam: bilateral normal Throat Exam: normal mouth inspection, pharynx normal Neck: full range of motion, supple, normal inspection Cardiovascular/Respiratory: regular rate, rhythm, no M/R/G, normal peripheral pulses, normal breath sounds, no respiratory distress Abdominal Exam: non-tender, no organomegaly Neurologic: no motor/sensory deficits, alert, normal mood/affect, oriented x 3 Skin Exam: normal color, warm/dry Progress - Progress Progress: 08/22/19 14:02 Epistaxis, right-sided -anterior vs posterior -will have pt hold direct continuous pressure in ED for >20 minutes before exam -check CBC, BMP 08/22/19 15:27 -The nosebleed stopped with pressure and Afrin in ED and has not recurred. An approx 5x5 mm area of anterior nasal mucosa along the septum was noted to be thinned and with dried blood - likely the source of the bleed. Pt sleeping, no distress. Labs unremarkable. -Discussed continued home treatment and what to do if bleed recurs at length. F/u closely with PCP recommended. Dc home in good condition. Eros Bustos MD Billing #[id number] Departure - Departure Clinical Impression: Epistaxis Time of Disposition: 15:29 Disposition: Discharge to Home or Self Care Condition: Fair Departure Forms: ED Discharge - Pt. Copy, Patient Portal Self Enrollment Instructions: Nosebleeds (DC) Referrals: JEFF SALCIDO MD [Primary Care Provider] - 1-2 Weeks Home Medications: Ambulatory Orders Centrum Silver 1 tablet PO DAILY 02/05/17 Ergocalciferol [Drisdol] 50,000 unit PO MONTHLY 02/05/17 Gabapentin [Neurontin] 900 mg PO BID 02/05/17 Levothyroxine Sodium [Synthroid] 150 mcg PO DAILY 02/05/17 Metformin HCl [Metformin Hydrochloride] 1,000 mg PO BID 02/05/17 Pantoprazole Tablet [Protonix] 40 mg PO DAILY 02/05/17 Rivaroxaban [Xarelto] 20 mg PO BEDTIME 02/05/17 Simvastatin [Zocor] 20 mg PO DAILY 02/05/17 Tamsulosin HCl [Flomax] 0.4 mg PO BID 02/05/17 Tolterodine Tartrate [Tolterodine Tartrate ER] 4 mg PO DAILY 02/05/17 Folic Bqgm-Inphplpegu-Ptwzsskr [Folbic 2.5-25-2 mg] 1 tab PO DAILY 04/29/17 Bifidobacterium Infantis [Align] 4 mg PO BID #60 05/01/17 Clindamycin HCl 600 mg PO TID #25 cap 05/01/17 Tamsulosin [Flomax] 0.4 mg PO BID #60 05/01/17 levoFLOXacin [Levaquin] 500 mg PO DAILY #5 tab 05/01/17
[2019-08-22] MEDS ORDERED: OXYMETAZOLINE NASAL SPRAY 15 ML BTTL ONE (14:30)
[2019-08-22 15:38] VITALS: BP 139/77
== END 2019-08-22 15:38 | disposition home or self-care (01) ==
LOC: ER 13:40
DX: R04.0 Epistaxis (principal); I48.91 Unspecified atrial fibrillation; I10 Essential (primary) hypertension; E07.9 Disorder of thyroid, unspecified; E11.9 Type 2 diabetes mellitus without complications; K21.9 Gastro-esophageal reflux disease without esophagitis; Z87.891 Personal history of nicotine dependence; Z79.01 Long term (current) use of anticoagulants

== ENCOUNTER 2020-05-08 12:33 | Emergency (ER) | payer MEDICARE ==
[2020-05-08 12:55] VITALS: TEMP 96.6
[2020-05-08] MEDS ORDERED: SODIUM CHLORIDE 0.9% 1000ML 1,000 ML IVS ONE ×2 (13:03→13:04)
--- NOTE | 2020-05-08 14:32 | CT ---
EXAM DESCRIPTION: Head CLINICAL HISTORY: weakness, generalized COMPARISON: August 06, 2017 TECHNIQUE: Noncontrast transaxial CT images of the head are obtained from base to vertex. This exam was performed according to our departmental dose-optimization program, which includes automated exposure control, adjustment of the mA and/or kV according to patient size and/or use of iterative reconstruction technique. FINDINGS: The midline structures are not displaced. Sulci are age-appropriate. There are areas of decreased attenuation in the periventricular white matter and the white matter of the centrum semiovale. Mild fanny cisterna magna of the posterior fossa is again seen. There is no evidence of mass, mass-effect, hydrocephalus, or acute intracranial hemorrhage. No abnormal extra axial fluid collection is seen. Bone windows show no evidence of depressed skull fracture. The visualized paranasal sinuses are unremarkable. IMPRESSION: 1. Age-appropriate atrophy with evidence of old small vessel ischemic type changes seen. 2. No acute abnormality is seen on noncontrast CT of the head. Electronically signed by: Roldan Espinoza MD 05/08/2020 1:41 PM CDT
--- NOTE | 2020-05-08 14:32 | RAD ---
EXAM DESCRIPTION: Knee,Right Complete CLINICAL HISTORY: 80 years Male, acute pain, known oa TECHNIQUE: 3 views of the right knee were performed. COMPARISON: None available. FINDINGS: The visualized bones appear well mineralized. No acute fracture or dislocation. Moderate tricompartmental osteoarthritis with joint effusion. The soft tissues appear grossly unremarkable. IMPRESSION: Moderate tricompartmental osteoarthritis with joint effusion. Electronically signed by: Hellen Katz MD 05/08/2020 1:42 PM CDT
--- NOTE | 2020-05-08 14:33 | RAD ---
EXAM DESCRIPTION: Hip,Right 2 Views CLINICAL HISTORY: acute pain, known oa COMPARISON: None. IMPRESSION: 2 views of the right hip show osteopenia the osseous structures without acute fracture, focal bone destruction, or joint dislocation. Mild sclerotic changes to the superior lateral acetabulum are seen suggesting mild osteoarthritic changes. Electronically signed by: Roldan Espinoza MD 05/08/2020 1:42 PM CDT
--- NOTE | 2020-05-08 14:36 | RAD ---
EXAM DESCRIPTION: Chest,1 View CLINICAL HISTORY: 80 years Male, hypotension COMPARISON: 08/06/2017. CT chest 04/03/2018 TECHNIQUE: AP portable chest. FINDINGS/IMPRESSION: Mild central pulmonary vascular congestion. No focal consolidation, pneumothorax or pleural effusion seen. Mildly prominent left pericardial fat, unchanged. The heart is mildly enlarged. The aortic knob is partially calcified. No acute osseous abnormality. Electronically signed by: Rigo Norman DO 05/08/2020 1:47 PM CDT
[2020-05-08 14:54] VITALS: O2SAT 94
--- NOTE | 2020-05-08 15:51 | ED.PDOC ---
History of Present Illness - General Chief Complaint: Lower Extremity Injury Stated Complaint: right knee pain Time Seen by Provider: 05/08/20 12:33 Source: patient Exam Limitations: no limitations - History of Present Illness Initial Comments: The patient has had right knee pain for quite some time secondary to advanced osteoarthritis. The patient actually tripped and fell yesterday and spent some amount of time on the floor secondary to pain limiting his ability to get up. The patient has been minimally active over the last 4 months due to the pain and due to restrictions on going out due to coronavirus. The patient actually had 2 of his hydrocodone this morning and so is currently a little bit sleepy. is reporting that he is just been weak in general over the past couple of months. The patient is alert and oriented. He does have pain primarily surrounding the right knee as well as a mild joint effusion. There is really no pain in the hip to palpation or movement. It does appear to be localized to the knee. No gross deformity besides the osteoarthritic changes in the swelling. He appears to be neurovascularly at his baseline distally. Significantly however on initial evaluation the patient is borderline hypotensive and significantly bradycardic. reports that he is very frequently bradycardic with heart rates down into the 40s. He does have known atrial fibrillation and is on Xarelto. 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 As far as blood pressure medications lowering his blood pressures, he does not take any specifically. He does however take Flomax and gabapentin both of which can lower blood pressures and the hydrocodone he took this morning can lower blood pressures. The patient was monitored for several hours and once the hydrocodone wore off he was able to move around much more easily. Blood pressures improved as well after a liter of IV fluids. Timing/Duration: unsure Severity: moderate Improving Factors: immobilization Worsening Factors: movement Associated Symptoms: malaise, weakness - Generalized Allergies/Adverse Reactions: Allergies NO KNOWN ALLERGY Allergy (Verified 05/08/20 12:55) Home Medications: Ambulatory Orders Centrum Silver 1 tablet PO DAILY 02/05/17 Gabapentin [Neurontin] 900 mg PO BID 02/05/17 Levothyroxine Sodium [Synthroid] 150 mcg PO DAILY 02/05/17 Metformin HCl [Metformin Hydrochloride] 750 mg PO BID 02/05/17 Pantoprazole Tablet [Protonix] 40 mg PO DAILY 02/05/17 Rivaroxaban [Xarelto] 20 mg PO BEDTIME 02/05/17 Simvastatin [Zocor] 20 mg PO DAILY 02/05/17 Tolterodine Tartrate [Tolterodine Tartrate ER] 4 mg PO DAILY 02/05/17 Folic Orze-Znrdhxjdcc-Rvkweuwj [Folbic 2.5-25-2 mg] 1 tab PO DAILY 04/29/17 Bifidobacterium Infantis [Align] 4 mg PO BID #60 05/01/17 Tamsulosin [Flomax] 0.4 mg PO BID #60 05/01/17 Review of Systems - Review of Systems Constitutional: States: malaise, weakness - Generalized EENTM: States: no symptoms reported Respiratory: States: no symptoms reported Cardiology: States: no symptoms reported Gastrointestinal/Abdominal: States: no symptoms reported Genitourinary: States: frequency Musculoskeletal: States: see HPI Skin: States: no symptoms reported Neurological: States: no symptoms reported Endocrine: States: no symptoms reported All other Systems: No Change from Baseline Past Medical History (General) - Patient Medical History Hx Stroke: No Hx of COPD: No Hx Cardiac Disorders: Yes - Atrial fib Hx Congestive Heart Failure: No Hx Hypertension: Yes Hx Thyroid Disease: Yes Hx Diabetes: Yes Hx Gastroesophageal Reflux: Yes Hx Cancer: No Hx Hepatitis C: No Hx MRSA: No - Vaccination History Hx Tetanus, Diphtheria Vaccination: No Hx Influenza Vaccination: Yes Hx Pneumococcal Vaccination: Yes - Social History Hx Tobacco Use: No Hx Alcohol Use: Yes - occ Hx Substance Use: No Hx Substance Use Treatment: No Hx Depression: No Hx Physical Abuse: No Hx Emotional Abuse: No Family Medical History - Family History Father Family History: Unknown Hx Family Stroke: Yes - mom - Hx Family Cancer: Yes - prostate-dad Mother Living Status: Hx Family Stroke: Yes Physical Exam - Physical Exam General Appearance: Alert, No apparent distress, Other - The patient is drowsy Eye Exam: bilateral normal Ears, Nose, Throat: hearing grossly normal, normal pharynx Neck: non-tender, supple Respiratory: lungs clear, normal breath sounds, no respiratory distress, no accessory muscle use Cardiovascular/Chest: normal peripheral pulses, no edema, other - Bradycardic Peripheral Pulses: radial,right: 2+, radial,left: 2+ Gastrointestinal/Abdominal: non tender, soft Rectal Exam: deferred Extremity: no pedal edema, no calf tenderness, normal capillary refill, other - Pain and diffuse swelling surrounding the right knee. 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 Progress - Progress Progress: 05/08/20 15:55 The patient is a 80-year-old male presenting primarily due to right knee pain. X-ray of the knee shows no evidence of any fracture or dislocation. He strained it and bruised it some with a fall yesterday. He does need to ambulate only with his walker at this point. I do believe the patient would benefit from a knee replacement. In the short-term he needs to discuss with his primary care doctor getting set up for physical therapy with home health to improve strengthening so that he tolerates the surgery better and ambulates better. He obviously needs to ambulate carefully to prevent falls. Additionally the patient has atrial fibrillation with fairly marked intermittent bradycardia, when combined with his borderline low normal blood pressures lead to mild generalized hypoperfusion that is symptomatic. Heart rates have frequently gotten down here into the low 40s, which the is reporting is not uncommon. I do believe the patient would significantly benefit from a pacemaker. They do report that they have an appointment with their paper feeder this coming week. This can be discussed further. Additionally I do believe orthopedics would like to have a pacemaker in place before they do any knee replacements. The only medications that I see on his medication list that could be dropping the blood pressure are the Flomax and the gabapentin. The patient needs to keep himself well-hydrated. He did have mild acute renal failure due to dehydration and did receive a liter of IV fluids. He had mild elevation of muscle enzymes which is likely due to the fall yesterday. I do want him to follow back up with his primary care doctor later this coming week. ER warnings are given for any significant worsening. karla huntley [phone] - Results/Orders Results/Orders: Head CT shows no acute pathology. 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 Hip x-ray on the right shows osteopenia and osteoarthritis. Knee x-ray on the right shows osteoarthritis. Chest x-ray shows mild vascular congestion and mild cardiomegaly. EKG shows marketed bradycardia with atrial fibrillation. Bundle branch block is present. Difficult to interpret otherwise. Laboratory Results - last 24 hr 05/08/20 05/08/20 05/08/20 13:40 13:40 13:40 WBC 9.7 RBC 4.89 Hgb 14.5 Hct 42.6 MCV 87.2 MCH 29.7 MCHC 34.1 RDW 14.3 Plt Count 153 MPV 7.8 Absolute Neuts (auto) 7.10 H Absolute Lymphs (auto) 1.00 Absolute Monos (auto) 1.30 H Absolute Eos (auto) 0.10 Absolute Basos (auto) 0.10 Neutrophils % 73.4 Lymphocytes % 10.8 L Monocytes % 13.9 H Eosinophils % 1.2 Basophils % 0.7 PT 12.0 H INR 1.21 H PTT (SP) 34.7 H Sodium 136 Potassium 4.1 Chloride 101 Carbon Dioxide 26 Anion Gap 13.1 BUN 28 H Creatinine 1.48 H BUN/Creatinine Ratio 18.9 Random Glucose 137 H Serum Osmolality 279.6 Lactic Acid Calcium 9.3 Magnesium 1.9 Total Bilirubin 3.0 H* AST 19 ALT 18 Alkaline Phosphatase 69 Creatine Kinase 405 H* CK-MB (CK-2) 4.5 H CK-MB (CK-2) % 1.11 Troponin I < 0.02 B-Natriuretic Peptide 652.0 H* Serum Total Protein 8.0 Albumin 4.0 Globulin 4.0 H Albumin/Globulin Ratio 1.0 L TSH 1.07 Urine Color Urine Appearance Urine pH Ur Specific [place] Urine Protein Urine Glucose (UA) Urine Ketones Urine Blood Urine Nitrite Urine Bilirubin Urine Urobilinogen Ur Leukocyte Esterase Urine RBC Urine WBC Ur Epithelial Cells Amorphous Sediment Urine Bacteria 05/08/20 05/08/20 13:40 15:16 WBC RBC Hgb Hct MCV MCH MCHC RDW Plt Count MPV Absolute Neuts (auto) Absolute Lymphs (auto) Absolute Monos (auto) Absolute Eos (auto) Absolute Basos (auto) Neutrophils % Lymphocytes % Monocytes % Eosinophils % Basophils % PT INR PTT (SP) Sodium Potassium Chloride Carbon Dioxide Anion Gap BUN Creatinine BUN/Creatinine Ratio Random Glucose Serum Osmolality Lactic Acid 1.2 Calcium Magnesium Total Bilirubin AST ALT Alkaline Phosphatase Creatine Kinase CK-MB (CK-2) CK-MB (CK-2) % Troponin I B-Natriuretic Peptide Serum Total Protein Albumin Globulin Albumin/Globulin Ratio TSH Urine Color Yellow Urine Appearance Clear Urine pH 5.5 Ur Specific [place] 1.015 Urine Protein Negative Urine Glucose (UA) 500 H Urine Ketones Trace Urine Blood Negative Urine Nitrite Negative Urine Bilirubin Negative Urine Urobilinogen 1.0 Ur Leukocyte Esterase Negative Urine RBC 1-3 Urine WBC 0-1 Ur Epithelial Cells 0-1 Amorphous Sediment 1+ Urine Bacteria 0 Departure - Departure Clinical Impression: Symptomatic hypotension Fall at home Qualifiers: Encounter type: initial encounter Qualified Code(s): W19.XXXA - Unspecified fall, initial encounter; Y92.009 - Unspecified place in unspecified non- institutional (private) residence as the place of occurrence of the external cause Acute renal failure Qualifiers: Acute renal failure type: unspecified Qualified Code(s): N17.9 - Acute kidney failure, unspecified Knee strain Qualifiers: Encounter type: initial encounter Laterality: right Qualified Code(s): S86.911A - Strain of unspecified muscle(s) and tendon(s) at lower leg level, right leg, initial encounter Disposition: Discharge to Home or Self Care Condition: Fair Departure Forms: ED Discharge - Pt. Copy, Patient Portal Self Enrollment Diet: diabetic diet Activity: other - use walker Referrals: JEFF SALCIDO MD [Primary Care Provider] - 1-5 Days Home Medications: Ambulatory Orders Centrum Silver 1 tablet PO DAILY 02/05/17 Gabapentin [Neurontin] 900 mg PO BID 02/05/17 Levothyroxine Sodium [Synthroid] 150 mcg PO DAILY 02/05/17 Metformin HCl [Metformin Hydrochloride] 750 mg PO BID 02/05/17 Pantoprazole Tablet [Protonix] 40 mg PO DAILY 02/05/17 Rivaroxaban [Xarelto] 20 mg PO BEDTIME 02/05/17 Simvastatin [Zocor] 20 mg PO DAILY 02/05/17 Tolterodine Tartrate [Tolterodine Tartrate ER] 4 mg PO DAILY 02/05/17 Folic Uiqt-Qapkvrnnse-Wgwwnamn [Folbic 2.5-25-2 mg] 1 tab PO DAILY 04/29/17 Bifidobacterium Infantis [Align] 4 mg PO BID #60 05/01/17 Tamsulosin [Flomax] 0.4 mg PO BID #60 05/01/17 Additional Instructions: The patient is a 80-year-old male presenting primarily due to right knee pain. X-ray of the knee shows no evidence of any fracture or dislocation. He strained it and bruised it some with a fall yesterday. He does need to ambulate only with his walker at this point. I do believe the patient would benefit from a knee replacement. In the short-term he needs to discuss with his primary care doctor getting set up for physical therapy with home health to improve strengthening so that he tolerates the surgery better and ambulates better. He obviously needs to ambulate carefully to prevent falls. Additionally the patient has atrial fibrillation with fairly marked intermittent bradycardia, when combined with his borderline low normal blood pressures lead to mild generalized hypoperfusion that is symptomatic. Heart rates have frequently gotten down here into the low 40s, which the is reporting is not uncommon. I do believe the patient would significantly benefit from a pacemaker. They do report that they have an appointment with their paper feeder this coming week. This can be discussed further. Additionally I do believe orthopedics would like to have a pacemaker in place before they do any knee replacements. The only medications that I see on his medication list that could be dropping the blood pressure are the Flomax and the gabapentin. The patient needs to keep himself well-hydrated. He did have mild acute renal failure due to dehydration and did receive a liter of IV fluids. He had mild elevation of muscle enzymes which is likely due to the fall yesterday. I do want him to follow back up with his primary care doctor later this coming week. ER warnings are given for any significant worsening.
[2020-05-08 16:22] VITALS: BP 107/60
== END 2020-05-08 16:20 | disposition home or self-care (01) ==
LOC: ER 12:33
DX: S86.911A Strain of unspecified muscle(s) and tendon(s) at lower leg level, right leg, initial encounter (principal); I95.9 Hypotension, unspecified; N17.9 Acute kidney failure, unspecified; I48.91 Unspecified atrial fibrillation; R53.1 Weakness; Z79.01 Long term (current) use of anticoagulants; M25.561 Pain in right knee; W01.0XXA Fall on same level from slipping, tripping and stumbling without subsequent striking against object, initial encounter; Y92.9 Unspecified place or not applicable
CPT/HCPCS: 36415; 70450; 71045; 73502; 73562; 80053; 81001; 82550; 82553; 83605; 83735; 83880; 84443; 84484; 85025; 85610; 85730; 93005; G0103; J7030

== ENCOUNTER 2020-11-18 10:35 | Emergency (ER) | payer MEDICARE ==
[2020-11-18 11:08] VITALS: O2SAT 100
--- NOTE | 2020-11-18 11:51 | ED.PDOC ---
History of Present Illness - General Chief Complaint: Trauma Stated Complaint: fall, rib pain Time Seen by Provider: 11/18/20 11:15 - History of Present Illness Allergies/Adverse Reactions: Allergies NO KNOWN ALLERGY Allergy (Verified 05/08/20 12:55) Home Medications: Ambulatory Orders Centrum Silver 1 tablet PO DAILY 02/05/17 Gabapentin [Neurontin] 900 mg PO BID 02/05/17 Levothyroxine Sodium [Synthroid] 150 mcg PO DAILY 02/05/17 Metformin HCl [Metformin Hydrochloride] 750 mg PO BID 02/05/17 Pantoprazole Tablet [Protonix] 40 mg PO DAILY 02/05/17 Rivaroxaban [Xarelto] 20 mg PO BEDTIME 02/05/17 Simvastatin [Zocor] 20 mg PO DAILY 02/05/17 Tolterodine Tartrate [Tolterodine Tartrate ER] 4 mg PO DAILY 02/05/17 Folic Agmm-Ofcywzhvoh-Fiijklhq [Folbic 2.5-25-2 mg] 1 tab PO DAILY 04/29/17 Tamsulosin [Flomax] 0.4 mg PO BID #60 05/01/17 Amlodipine Besylate 5 mg PO DAILY 11/18/20 Ergocalciferol [Vitamin D2] 50,000 unit PO DAILY 11/18/20 Finasteride 5 mg PO DAILY 11/18/20 Tramadol HCl [Ultram] 50 mg PO Q4H PRN 14 Days #30 tab 11/18/20 Past Medical History (General) - Patient Medical History Hx Seizures: No Hx Stroke: No Hx of COPD: No Hx Cardiac Disorders: Yes - Atrial fib Hx Congestive Heart Failure: No Hx Pacemaker: No Hx Hypertension: Yes Hx Thyroid Disease: Yes Hx Diabetes: Yes Hx Gastroesophageal Reflux: Yes Hx Cancer: No Hx Hepatitis C: No Hx MRSA: No - Vaccination History Hx Tetanus, Diphtheria Vaccination: No Hx Influenza Vaccination: Yes Hx Pneumococcal Vaccination: Yes Immunizations Up to Date: Yes - Social History Hx Tobacco Use: No Hx Alcohol Use: No Hx Substance Use: No Hx Substance Use Treatment: No Hx Depression: No Hx Physical Abuse: No Hx Emotional Abuse: No - Female History Patient is a Female of Child Bearing Age (10 -59 yrs old): No - Triage Comment ED Triage Comment: Pt walked into ER using walker. Family Medical History - Family History Father Family History: Unknown Hx Family Stroke: Yes - mom - Hx Family Cancer: Yes - prostate-dad Mother Living Status: Hx Family Stroke: Yes Physical Exam - Physical Exam General Appearance: Alert, Comfortable, Well Developed, Well Groomed, Well Hydrated, Well Nourished Head Injury: no evidence of injury ENT Exam: hearing grossly normal, no evidence of ENT injury Neck Exam: non-tender, full range of motion, normal alignment, normal inspection Cardiovascular/Respiratory: regular rate, rhythm, no M/R/G, normal peripheral pulses, no JVD, normal breath sounds, no respiratory distress, other - LARGE CONTUSION TO THE LEFT LATERAL CHEST BELOW THE NIPILE LINE. Gastrointestinal/Abdominal: normal bowel sounds, non tender, soft, no organomegaly, no pulsatile mass Departure - Departure Clinical Impression: Rib fracture Qualifiers: Encounter type: initial encounter Rib fracture type: single rib Fracture type: closed Laterality: right Qualified Code(s): S22.31XA - Fracture of one rib, right side, initial encounter for closed fracture Time of Disposition: 13:09 Disposition: Discharge to Home or Self Care Condition: Good Departure Forms: ED Discharge - Pt. Copy, Patient Portal Self Enrollment Instructions: DI for Trauma, Rib Fractures in Adults Referrals: JEFF SALCIDO MD [Primary Care Provider] - 1-2 Weeks Prescriptions: Tramadol HCl [Ultram] 50 mg PO Q4H PRN 14 Days #30 tab PRN Reason: Pain Home Medications: Ambulatory Orders Centrum Silver 1 tablet PO DAILY 02/05/17 Gabapentin [Neurontin] 900 mg PO BID 02/05/17 Levothyroxine Sodium [Synthroid] 150 mcg PO DAILY 02/05/17 Metformin HCl [Metformin Hydrochloride] 750 mg PO BID 02/05/17 Pantoprazole Tablet [Protonix] 40 mg PO DAILY 02/05/17 Rivaroxaban [Xarelto] 20 mg PO BEDTIME 02/05/17 Simvastatin [Zocor] 20 mg PO DAILY 02/05/17 Tolterodine Tartrate [Tolterodine Tartrate ER] 4 mg PO DAILY 02/05/17 Folic Jgyt-Qzsqbpznov-Lkpugecc [Folbic 2.5-25-2 mg] 1 tab PO DAILY 04/29/17 Tamsulosin [Flomax] 0.4 mg PO BID #60 05/01/17 Amlodipine Besylate 5 mg PO DAILY 11/18/20 Ergocalciferol [Vitamin D2] 50,000 unit PO DAILY 11/18/20 Finasteride 5 mg PO DAILY 11/18/20 Tramadol HCl [Ultram] 50 mg PO Q4H PRN 14 Days #30 tab 11/18/20 Additional Instructions: RECOMMEND OTC IBUPROFEN 600-800 MG EVERY 8 HOURS TO HELP CONTROL PAIN. RECOMMEND INCENTIVE SPIROMETRY 20 BREATHS EVERY 2 HOURS WHILE AWAKE FOR THE NEXT 2 WEEKS.
--- NOTE | 2020-11-18 12:41 | RAD ---
Study: Frontal and oblique views of the ribs. Indication: TRAUMA Comparison: August 06, 2017 Impression: The bones are osteopenic. A questionable right posterior 10th rib fracture suspected. No pneumothorax identified. Electronically signed by: Mario Davidson MD 11/18/2020 12:39 PM [facility]
--- NOTE | 2020-11-18 12:42 | RAD ---
EXAM DESCRIPTION: Hand,Left 3 Views CLINICAL HISTORY: 80 years Male, TRAUMA COMPARISON: None. TECHNIQUE: 3 view radiograph of the left hand. IMPRESSION: No acute displaced fracture. No dislocation. Normal anatomic alignment of the included carpal and metacarpal bones. Mild arthrosis about the interphalangeal joints. Severe arthrosis of the STT joint. Neutral ulnar variance. 5 mm calcific density within the ulnocarpal joint space. No soft tissue defect are performed body. Electronically signed by: Jhony Way MD 11/18/2020 12:40 PM [facility]
[2020-11-18 13:18] VITALS: TEMP 98.1
[2020-11-18 13:47] VITALS: BP 154/82
== END 2020-11-18 13:30 | disposition home or self-care (01) ==
LOC: ER 10:35
DX: S22.31XA Fracture of one rib, right side, initial encounter for closed fracture (principal); K21.9 Gastro-esophageal reflux disease without esophagitis; E11.9 Type 2 diabetes mellitus without complications; E07.9 Disorder of thyroid, unspecified; I10 Essential (primary) hypertension; I48.91 Unspecified atrial fibrillation; Z79.899 Other long term (current) drug therapy; Z79.84 Long term (current) use of oral hypoglycemic drugs; Z79.01 Long term (current) use of anticoagulants; W01.198A Fall on same level from slipping, tripping and stumbling with subsequent striking against other object, initial encounter; Y93.89 Activity, other specified; Y92.9 Unspecified place or not applicable